=== PATIENT | male | born 1970 | race Caucasian/White ===

== ENCOUNTER 2016-09-13 10:32 | Emergency (ER) | payer OTHER, MEDICAID ==
[2016-09-13 10:57] VITALS: BP 101/80; PULSE 90; RESP 16; TEMP 98.1; O2SAT 95
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
[2016-09-13] MEDS ORDERED: ACETAMINOPHEN 325 MG TAB PO ONE (11:35)
== END 2016-09-13 11:55 | disposition home or self-care (01) ==
DX: J06.9 Acute upper respiratory infection, unspecified (principal); Z87.891 Personal history of nicotine dependence

== ENCOUNTER 2018-05-01 05:40 | Emergency (ER) | payer OTHER, MEDICAID ==
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
[2018-05-01] MEDS ORDERED: KETOROLAC 30 MG/1 ML SDV IM ONE (07:09)
[2018-05-01] MEDS ORDERED: CYCLOBENZAPRINE 10 MG TAB PO ONE (07:10)
[2018-05-01 07:44] VITALS: BP 127/87
== END 2018-05-01 07:46 | disposition home or self-care (01) ==
LOC: EDUNIT#
DX: M54.17 Radiculopathy, lumbosacral region (principal); G89.29 Other chronic pain; Z87.828 Personal history of other (healed) physical injury and trauma
CPT/HCPCS: 96372; 99284; J1885

== ENCOUNTER 2018-07-27 09:11 | Observation (INO) | payer OTHER, MEDICAID ==
[2018-07-27] MEDS ORDERED: IOPAMIDOL (ISOVUE 370) 100 ML BTL IV ONE ×2 (09:16→10:56)
--- NOTE | 2018-07-27 09:19 | EDPHY ---
H & P Time Seen by Provider: 07/27/18 09:11 Constitutional: Initial Vital Signs Heart Rate 96 07/27/18 09:25 Respiratory Rate 18 07/27/18 09:25 Blood Pressure 142/96 H 07/27/18 09:25 O2 Sat (%) 91 L 07/27/18 09:25 O2 Delivery Mode Room Air Allergies/Adverse Reactions: No Known Allergies Allergy (Verified 07/27/18 09:42) Home Medications: Medication Instructions Recorded Amitriptyline HCl [Elavil 50 mg 100 mg PO TID 07/27/18 (*)] Cyclobenzaprine [Flexeril 10 MG 5 - 10 mg PO TID PRN 07/27/18 (*)] Pregabalin [Lyrica 150mg (*)] 150 mg PO TID 07/27/18 Medical Decision Making - Diagnostics Imaging Results: Imaging Impressions Head CT 07/27/18 09:14 Impression: 1. Normal CT brain without contrast. 2. No evidence of skull fracture. 3. Consider MRI of the brain, if there is continued clinical concern. Findings and recommendations discussed with Emergency Department physician, Kirk Perez MD, at 0927 hours, 07/27/2018. Final report concurs with initial preliminary interpretation. Head CTA 07/27/18 09:14 Impression: 1. No carotid or vertebral dissection, flow-limiting stenosis or occlusion. 2. No carotid atherosclerotic disease. 3. Patent vertebral basilar system. Measurement of carotid stenosis is based on the residual internal carotid diameter with [place] Symptomatic Carotid Endarterectomy Trial (NASCET) based stenosis levels. CT Angiogram of the Brain Clinical Indications: Stroke alert, difficulty walking, altered mental status. Technique: CT angiogram of the brain and neck was performed with the uneventful intravenous administration of 85 mL Isovue-370 contrast. Multiplanar reconstructions including 3D reconstructions performed and evaluated on [employer] workstation in order to better evaluate the [place] vessels. Images were manipulated by the radiologist at the computer workstation. Dose reduction techniques were utilized. Findings: Major vessels of the [place] are adequately displayed, demonstrating no evidence of aneurysm, vascular malformation, flow-limiting stenosis, or occlusion. Bilateral cavernous internal carotid arteries and vertebrobasilar system demonstrates no evidence of flow-limiting stenosis, aneurysm, occlusion, or dissection. Superior sagittal sinus, transverse sinuses , and major veins demonstrate no evidence of intraluminal thrombi. Impression: Negative CT angiogram of the brain. Findings and recommendations discussed with Emergency Department physician, Dr. Kirk Perez at 0949 hours on July 27, 2018. Final report concurs with initial preliminary interpretation. Neck CTA 07/27/18 09:15 Impression: 1. No carotid or vertebral dissection, flow-limiting stenosis or occlusion. 2. No carotid atherosclerotic disease. 3. Patent vertebral basilar system. Measurement of carotid stenosis is based on the residual internal carotid diameter with [place] Symptomatic Carotid Endarterectomy Trial (NASCET) based stenosis levels. CT Angiogram of the Brain Clinical Indications: Stroke alert, difficulty walking, altered mental status. Technique: CT angiogram of the brain and neck was performed with the uneventful intravenous administration of 85 mL Isovue-370 contrast. Multiplanar reconstructions including 3D reconstructions performed and evaluated on [employer] workstation in order to better evaluate the [place] vessels. Images were manipulated by the radiologist at the computer workstation. Dose reduction techniques were utilized. Findings: Major vessels of the [place] are adequately displayed, demonstrating no evidence of aneurysm, vascular malformation, flow-limiting stenosis, or occlusion. Bilateral cavernous internal carotid arteries and vertebrobasilar system demonstrates no evidence of flow-limiting stenosis, aneurysm, occlusion, or dissection. Superior sagittal sinus, transverse sinuses , and major veins demonstrate no evidence of intraluminal thrombi. Impression: Negative CT angiogram of the brain. Findings and recommendations discussed with Emergency Department physician, Dr. Kirk Perez at 0949 hours on July 27, 2018. Final report concurs with initial preliminary interpretation. Abdomen CT 07/27/18 10:09 Impression: 1. Markedly distended urinary bladder and mild bilateral pelvocaliectasis. No pelvic mass. 2. Constipation. 3. No intraabdominal mass, lymphadenopathy, or localized inflammatory process. 4. Bibasilar linear atelectasis. Findings discussed with Emergency Department physician, Kirk Perez MD, on at 11:00 a.m. Imaging: Discussed imaging studies w/ industrial maintenance instructor Radiologist ED Course/Re-evaluation: CHIEF COMPLAINT: Stroke alert HISTORY OF PRESENT ILLNESS: 9:11 met EMS at bedside. This patient is a 48 year old male. one hour 15 minutes ago. 8:00 am. no known anticoagulants. fall in the bathroom. complaint of slurred speech. Per fire dept pt woke feeling well, was able to get up and walk around as usual, took his medications, then went to use the restroom and fell suddenly. Called EMS himself. Takes cyclobenzaprine, amitriptyline (180 pills filled 07/11/18, one remaining), Lyrica. 148/99. 104. 12-lead sinus tachy. BGL 139. REVIEW OF SYSTEMS: A comprehensive 10 system review of systems is otherwise negative aside from elements mentioned in the history of present illness and medical decision making. PHYSICAL EXAM: HR, BP, O2 Sat, RR. Temp noted General Appearance: Alert, well hydrated, appropriate, and non-toxic appearing. Head: Atraumatic without scalp tenderness or obvious injury Eyes: Pupils equal, round, reactive to light and accommodation, EOMI, no trauma , no injection. Ears: Clear bilaterally, no perforation, normal landmarks Nose: Atraumatic, no rhinorrhea, clear. Throat: There is no erythema or exudates, no lesions, normal tonsils, mucus membranes moist. Neck: Supple, 2+ carotid upstroke, nontender, no lymphadenopathy. Respiratory: No retractions, no distress, no wheezes, and no accessory muscle use. Lungs are clear to auscultation bilaterally. Cardiovascular: Regular rate and rhythm, no murmurs, rubs, or gallops. Bilateral carotid, radial, dorsalis pedis, and posterior tibial pulses intact. Good capillary refill all extremities. Gastrointestinal: Abdomen is soft, nontender, non-distended, no masses, no rebound, no guarding, no peritoneal signs. Musculoskeletal: Normal active ROM of all extremities, atraumatic. Neurological: Alert, appropriate, and interactive. The patient has normal DTRs and non-focal cranial nerves, motor, sensory, and cerebellar exam. Skin: No rashes, good turgor, no nodules on palpation. Past medical history: Past surgical history: Family history: Social history: DIAGNOSTICS/PROCEDURES/CRITICAL CARE TIME: DIFFERENTIAL DIAGNOSIS: MEDICAL DECISION MAKIN:11 Met EMS on arrival. 48 year old male arrives via EMS on a pre-hospital stroke alert for evaluation of speech and mobility deficits onset one hour and 15 minutes prior to arrival, around 8:00am. On arrival, he is noted to have slurred speech and bilateral weakness in his extremities. He will proceed immediately to imaging for CT head, CTA head/neck. Plan to consult with [facility]. 09:[address] Jean, radiolgist. CT head negative for acute processes. 09:[address] Albert, neurologist at [facility]. I was present for and participated in a bedside evaluation of the patient and consultation via telemedicine. Patient continues to exhibit speech and mobility deficits. He is currently an unreliable historian and it is difficult to establish a known time of onset of symptoms. Patient is therefore not a candidate for tPA administration at this time. Plan to admit the patient to the hospitalist service with consultation with local neurologist for further evaluation and management. It is unclear whether the cause of the patient's deficits are neurologic or metabolic in origin at this time. Additionally, the patient complains of new onset abdominal pain and swelling. The abdomen is diffusely tender on exam. Plan for additional laboratory studies including liver function panel, lipase. 9:[address] Jean, radiologist. 10:09 Spoke with hospitalist service. Dr. Pereyra accepts admission for []. 10:[address] Davis, neurologist. He will consult during the patient's admission. 10:[address] Han, radiologist. CT abdomen/pelvis shows distended bladder. No other acute processes. 11:19 Dr. Davis, neurologist, at bedside. - Data Points Laboratory Results: Laboratory Results 07/27/18 09:15 07/27/18 09:15 07/27/18 07/27/18 07/27/18 09:44 09:19 09:15 WBC RBC Hgb POC Hgb 16.7 gm/dL gm/dL (13.7-17.5) Hct POC Hct 49 % % (40-51) MCV MCH MCHC RDW Plt Count MPV Neut % (Auto) Lymph % (Auto) [place] % (Auto) Eos % (Auto) Baso % (Auto) Nucleat RBC Rel Count Absolute Neuts (auto) Absolute Lymphs (auto) Absolute Monos (auto) Absolute Eos (auto) Absolute Basos (auto) Absolute Nucleated RBC Immature Gran % Immature Gran # PT INR APTT POC Sodium 143 mEq/L mEq/L (135-145) Sodium POC Potassium 3.7 mEq/L mEq/L (3.3-5.0) Potassium POC Chloride 105 mEq/L mEq/L (97-110) Chloride Carbon Dioxide Anion Gap POC BUN 5 mg/dL L mg/dL (7-23) BUN Creatinine POC Creatinine 0.9 mg/dL mg/dL (0.7-1.3) Estimated GFR Glucose POC Glucose 90 mg/dL mg/dL (70-100) Calcium Total Bilirubin 0.3 mg/dL mg/dL (0.1-1.4) Conjugated Bilirubin 0.3 mg/dL mg/dL (0.0-0.5) Unconjugated Bilirubin 0.0 mg/dL mg/dL (0.0-1.1) AST 31 IU/L IU/L (17-59) ALT 58 IU/L IU/L (21-72) Alkaline Phosphatase 141 IU/L H IU/L (38-126) POC Troponin I 0.02 ng/mL ng/mL (0.00-0.08) Total Protein 7.7 g/dL g/dL (6.3-8.2) Albumin 4.6 g/dL g/dL (3.5-5.0) Lipase 64 IU/L IU/L (23-300) 07/27/18 07/27/18 07/27/18 09:15 09:15 09:15 WBC 9.76 10^3/uL H 10^3/uL (3.80-9.50) RBC 5.05 10^6/uL 10^6/uL (4.40-6.38) Hgb 16.5 g/dL g/dL (13.7-17.5) POC Hgb Hct 47.1 % % (40.0-51.0) POC Hct MCV 93.3 fL fL (81.5-99.8) MCH 32.7 pg pg (27.9-34.1) MCHC 35.0 g/dL g/dL (32.4-36.7) RDW 13.3 % % (11.5-15.2) Plt Count 199 10^3/uL 10^3/uL (150-400) MPV 9.6 fL fL (8.7-11.7) Neut % (Auto) 63.8 % % (39.3-74.2) Lymph % (Auto) 26.1 % % (15.0-45.0) [place] % (Auto) 6.4 % % (4.5-13.0) Eos % (Auto) 2.5 % % (0.6-7.6) Baso % (Auto) 0.8 % % (0.3-1.7) Nucleat RBC Rel Count 0.0 % % (0.0-0.2) Absolute Neuts (auto) 6.23 10^3/uL 10^3/uL (1.70-6.50) Absolute Lymphs (auto) 2.55 10^3/uL 10^3/uL (1.00-3.00) Absolute Monos (auto) 0.62 10^3/uL 10^3/uL (0.30-0.80) Absolute Eos (auto) 0.24 10^3/uL 10^3/uL (0.03-0.40) Absolute Basos (auto) 0.08 10^3/uL 10^3/uL (0.02-0.10) Absolute Nucleated RBC 0.00 10^3/uL 10^3/uL (0-0.01) Immature Gran % 0.4 % % (0.0-1.1) Immature Gran # 0.04 10^3/uL 10^3/uL (0.00-0.10) PT 12.2 SEC SEC (12.0-15.0) INR 0.88 (0.83-1.16) APTT 31.4 SEC SEC (23.0-38.0) POC Sodium Sodium 141 mEq/L mEq/L (135-145) POC Potassium Potassium 4.0 mEq/L mEq/L (3.5-5.2) POC Chloride Chloride 108 mEq/L mEq/L (97-110) Carbon Dioxide 24 mEq/l mEq/l (22-31) Anion Gap 9 mEq/L mEq/L (6-14) POC BUN BUN 8 mg/dL mg/dL (7-23) Creatinine 0.9 mg/dL mg/dL (0.7-1.3) POC Creatinine Estimated GFR > 60 Glucose 88 mg/dL mg/dL (70-100) POC Glucose Calcium 9.3 mg/dL mg/dL (8.5-10.4) Total Bilirubin Conjugated Bilirubin Unconjugated Bilirubin AST ALT Alkaline Phosphatase POC Troponin I Total Protein Albumin Lipase Medications Given: Discontinued Medications Lidocaine (Uroject Lidocaine 2% Jelly) 20 ml UR ONCE ONE Stop: 07/27/18 11:05 Last Admin: 07/27/18 11:11 Dose: 20 ml Point of Care Test Results: Chemistry 07/27/18 07/27/18 09:44 09:19 POC Sodium 143 mEq/L mEq/L (135-145) POC Potassium 3.7 mEq/L mEq/L (3.3-5.0) POC Chloride 105 mEq/L mEq/L (97-110) POC BUN 5 mg/dL L mg/dL (7-23) POC Creatinine 0.9 mg/dL mg/dL (0.7-1.3) POC Glucose 90 mg/dL mg/dL (70-100) POC Troponin I 0.02 ng/mL ng/mL (0.00-0.08) ISTAT H&H 07/27/18 09:19 POC Hgb 16.7 gm/dL gm/dL (13.7-17.5) POC Hct 49 % % (40-51) Departure - Departure Disposition: [facility] Inpatient Acute Clinical Impression: Neurological deficit present CVA (cerebral vascular accident) Qualifiers: CVA mechanism: unspecified Qualified Code(s): I63.9 - Cerebral infarction, unspecified Condition: Serious Report Scribed for: Kirk Perez Report Scribed by: Kenna Shultz Date of Report: 07/27/18 Time of Report: 11:39
[2018-07-27 09:36] LABS: PLATELET COUNT 199 10^3/uL (150-400)
[2018-07-27 09:45] LABS: INR 0.88 (0.83-1.16); PROTIME(PATIENT) 12.2 SEC (12.0-15.0)
[2018-07-27] MEDS ORDERED: LIDOCAINE 2% JELLY 20 ML (UROJECT) UR ONE (11:04)
--- NOTE | 2018-07-27 11:49 | GCON ---
NEUROLOGY CONSULT DATE OF CONSULTATION: 07/27/2018 REFERRING PHYSICIAN: Kirk Perez MD CHIEF COMPLAINT: Myoclonus. HISTORY OF PRESENT ILLNESS: The patient is a pleasant 48-year-old gentleman with apparently chronic schizophrenia, according to the patient, and related cognitive and speech abnormalities that he states has been present for "many years." The patient came to the emergency department for abdominal pain and inability to urinate. In this evaluation, he had myoclonus on exam and had a stroke alert called with [facility]. He had a CTA of the head and neck , which showed no acute vascular abnormalities. Head CT showed normal brain. His abdominal and pelvic CAT scan shows a markedly distended urinary bladder. REVIEW OF SYSTEMS: A review of systems was done and only pertinent to the HPI. For past medical history, social history, family history, home medications, allergies, see Dr. Perez's ED report. PHYSICAL EXAMINATION: VITAL SIGNS : His blood pressure is 140s/90s. He is breathing 18 times per minute, and O2 sats 94% on room air. NEUROLOGIC: He is awake and alert. He has an abnormal speech pattern that is difficult to understand. He states his articulatory imprecision is chronic and related to schizophrenia. Finding is not clear. On motor exam, the patient has no clear- cut focal weakness. 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 Sensory exam is normal. Coordination: Accentuates his asterixis when checking finger- nose-finger. IMPRESSION AND PLAN: 1. Toxic/metabolic encephalopathy Overall, the pattern of his presentation would be consistent with a toxic and/ or metabolic encephalopathy. I do note his renal and hepatic function is normal now. He has significant urinary bladder distention. He is apparently on tricyclic antidepressants as an outpatient, which in higher doses, can have anticholinergic affects that cause this presentation. The patient will likely be admitted to the hospitalist medicine service. I recommend an MRI brain without contrast to exclude any mass lesion, tumor, or stroke. If this is negative, then I would recommend medical treatment for the urinary dysfunction and close monitoring of renal and hepatic labs, as they may elevate in this clinical scenario. If there are any questions or abnormalities on MRI brain, please call the neurology service for further recommendations. Otherwise, we will continue to follow as needed. Please do not hesitate to call if there are any changes in neurologic status with this patient. 30 total minutes floor time today in the emergency department, over 50% in direct counseling and coordination of care with the ED staff. /[id number]/MODL MTDD
[2018-07-27] MEDS ORDERED: ONDANSETRON 4 MG/2 ML VIAL IVP PRN (13:04)
[2018-07-27] MEDS ORDERED: ONDANSETRON DISINTEGRATING 4 MG TAB PO PRN (13:04)
--- NOTE | 2018-07-27 14:21 | CPEKG ---
Test Reason : OPEN Blood Pressure : / mmHG Vent. Rate : 088 BPM Atrial Rate : 088 BPM P-R Int : 211 ms QRS Dur : 096 ms QT Int : 359 ms P-R-T Axes : 053 240 035 degrees QTc Int : 435 ms Sinus rhythm Prolonged RI interval Left anterior fascicular block Confirmed by Kirk Perez ([id number]) on 07/27/2018 2:20:54 PM Referred By: Confirmed By:Kirk Perez
[2018-07-27] MEDS: PREGABALIN 150 MG CAP PO SCH ×2 (15:38→22:48)
--- NOTE | 2018-07-27 16:18 | PDGENHP ---
History and Physical - Chief Complaint fall, difficulty urinating - History of Present Illness 48 yo male with h/o chronic pain and paranoid schizophrenia presents to ED after he suffered a fall while trying to go to the bathroom this am. He notes that he has recently been taking extra doses of Amitryptiline for his chronic pain. He is also on Lyrica. He notes increased difficulty with urination. Upon arrival to the ED, there was concern about slurred speech and a stroke alert was called. CT and CTA head / neck were negative for vessel occlusion. He says his speech is abnormal at baseline. He denies fevers, chills or dysuria. He denies CP, SOB. No hoskins or vision changes. CT imaging of the abdomen in the ED revealed markedly distended bladded. A solomon was placed and he was admitted for further evaluation. History Information - Allergies/Home Medication List Allergies/Adverse Reactions: No Known Allergies Allergy (Verified 07/27/18 09:42) Home Medications: Amitriptyline HCl [Elavil 50 mg (*)] 100 mg PO TID 07/27/18 [Last Taken 04:00] Cyclobenzaprine [Flexeril 10 MG (*)] 5 - 10 mg PO TID PRN 07/27/18 [Last Taken 07/27/18 04:00] Pregabalin [Lyrica 150mg (*)] 150 mg PO TID 07/27/18 [Last Taken 07/27/18 04:00] I have personally reviewed and updated: family history, medical history, social history, surgical history - Past Medical History Additional medical history: chronic pain. neuropathy. paranoid schizophrenia. migraines - Surgical History Additional surgical history: shoulder surgery - Family History Positive for: non-pertinent - Social History Smoking Status: Former smoker Additional social history: Lives independently Review of Systems Review of Systems: ROS: 10pt was reviewed & negative except for what was stated in HPI & below Physical Exam Physical Exam: Temp Pulse Resp BP Pulse Ox 36.3 C 80 19 139/93 H 93 07/27/18 14:25 07/27/18 14:25 07/27/18 14:25 07/27/18 14:25 07/27/18 14:25 Constitutional: no apparent distress Eyes: PERRL Ears, Nose, Mouth, Throat: moist mucous membranes Cardiovascular: regular rate and rhythym, no murmur, rub, or gallop Respiratory: no respiratory distress, clear to auscultation Gastrointestinal: normoactive bowel sounds, soft, non-tender abdomen Skin: warm Musculoskeletal: full muscle strength Neurologic: AAOx3, other (dysarthria) Psychiatric: interacting appropriately Lab Data & Imaging Review 07/27/18 09:15 07/27/18 09:15 WBC 9.76 10^3/uL (3.80-9.50) H 07/27/18 09:15 RBC 5.05 10^6/uL (4.40-6.38) 07/27/18 09:15 Hgb 16.5 g/dL (13.7-17.5) 07/27/18 09:15 POC Hgb 16.7 gm/dL (13.7-17.5) 07/27/18 09:19 Hct 47.1 % (40.0-51.0) 07/27/18 09:15 POC Hct 49 % (40-51) 07/27/18 09:19 MCV 93.3 fL (81.5-99.8) 07/27/18 09:15 MCH 32.7 pg (27.9-34.1) 07/27/18 09:15 MCHC 35.0 g/dL (32.4-36.7) 07/27/18 09:15 RDW 13.3 % (11.5-15.2) 07/27/18 09:15 Plt Count 199 10^3/uL (150-400) 07/27/18 09:15 MPV 9.6 fL (8.7-11.7) 07/27/18 09:15 Neut % (Auto) 63.8 % (39.3-74.2) 07/27/18 09:15 Lymph % (Auto) 26.1 % (15.0-45.0) 07/27/18 09:15 [place] % (Auto) 6.4 % (4.5-13.0) 07/27/18 09:15 Eos % (Auto) 2.5 % (0.6-7.6) 07/27/18 09:15 Baso % (Auto) 0.8 % (0.3-1.7) 07/27/18 09:15 Nucleat RBC Rel Count 0.0 % (0.0-0.2) 07/27/18 09:15 Absolute Neuts (auto) 6.23 10^3/uL (1.70-6.50) 07/27/18 09:15 Absolute Lymphs (auto) 2.55 10^3/uL (1.00-3.00) 07/27/18 09:15 Absolute Monos (auto) 0.62 10^3/uL (0.30-0.80) 07/27/18 09:15 Absolute Eos (auto) 0.24 10^3/uL (0.03-0.40) 07/27/18 09:15 Absolute Basos (auto) 0.08 10^3/uL (0.02-0.10) 07/27/18 09:15 Absolute Nucleated RBC 0.00 10^3/uL (0-0.01) 07/27/18 09:15 Immature Gran % 0.4 % (0.0-1.1) 07/27/18 09:15 Immature Gran # 0.04 10^3/uL (0.00-0.10) 07/27/18 09:15 PT 12.2 SEC (12.0-15.0) 07/27/18 09:15 INR 0.88 (0.83-1.16) 07/27/18 09:15 APTT 31.4 SEC (23.0-38.0) 07/27/18 09:15 POC Sodium 143 mEq/L (135-145) 07/27/18 09:19 Sodium 141 mEq/L (135-145) 07/27/18 09:15 POC Potassium 3.7 mEq/L (3.3-5.0) 07/27/18 09:19 Potassium 4.0 mEq/L (3.5-5.2) 07/27/18 09:15 POC Chloride 105 mEq/L (97-110) 07/27/18 09:19 Chloride 108 mEq/L (97-110) 07/27/18 09:15 Carbon Dioxide 24 mEq/l (22-31) 07/27/18 09:15 Anion Gap 9 mEq/L (6-14) 07/27/18 09:15 POC BUN 5 mg/dL (7-23) L 07/27/18 09:19 BUN 8 mg/dL (7-23) 07/27/18 09:15 Creatinine 0.9 mg/dL (0.7-1.3) 07/27/18 09:15 POC Creatinine 0.9 mg/dL (0.7-1.3) 07/27/18 09:19 Estimated GFR > 60 07/27/18 09:15 Glucose 88 mg/dL (70-100) 07/27/18 09:15 POC Glucose 90 mg/dL (70-100) 07/27/18 09:19 Calcium 9.3 mg/dL (8.5-10.4) 07/27/18 09:15 Total Bilirubin 0.3 mg/dL (0.1-1.4) 07/27/18 09:15 Conjugated Bilirubin 0.3 mg/dL (0.0-0.5) 07/27/18 09:15 Unconjugated Bilirubin 0.0 mg/dL (0.0-1.1) 07/27/18 09:15 AST 31 IU/L (17-59) 07/27/18 09:15 ALT 58 IU/L (21-72) 07/27/18 09:15 Alkaline Phosphatase 141 IU/L (38-126) H 07/27/18 09:15 POC Troponin I 0.02 ng/mL (0.00-0.08) 07/27/18 09:44 Total Protein 7.7 g/dL (6.3-8.2) 07/27/18 09:15 Albumin 4.6 g/dL (3.5-5.0) 07/27/18 09:15 Lipase 64 IU/L (23-300) 07/27/18 09:15 Urine Color PALE YELLOW 07/27/18 11:02 Urine Appearance CLEAR 07/27/18 11:02 Urine pH 7.0 (5.0-7.5) 07/27/18 11:02 Ur Specific [place] 1.003 (1.002-1.030) 07/27/18 11:02 Urine Protein NEGATIVE (NEGATIVE) 07/27/18 11:02 Urine Ketones NEGATIVE (NEGATIVE) 07/27/18 11:02 Urine Blood NEGATIVE (NEGATIVE) 07/27/18 11:02 Urine Nitrate NEGATIVE (NEGATIVE) 07/27/18 11:02 Urine Bilirubin NEGATIVE (NEGATIVE) 07/27/18 11:02 Urine Urobilinogen NEGATIVE EU (0.2-1.0) 07/27/18 11:02 Ur Leukocyte Esterase NEGATIVE (NEGATIVE) 07/27/18 11:02 Urine RBC NONE SEEN /hpf (0-3) 07/27/18 11:02 Urine WBC 1-3 /hpf (0-3) 07/27/18 11:02 Ur Epithelial Cells NONE SEEN /lpf (NONE-1+) 07/27/18 11:02 Urine Glucose NEGATIVE (NEGATIVE) 07/27/18 11:02 Urine Opiates Screen NEGATIVE (NEGATIVE) 07/27/18 11:02 Urine Barbiturates NEGATIVE (NEGATIVE) 07/27/18 11:02 Ur Phencyclidine Scrn NEGATIVE (NEGATIVE) 07/27/18 11:02 Ur Amphetamine Screen NEGATIVE (NEGATIVE) 07/27/18 11:02 U Benzodiazepines Scrn NEGATIVE (NEGATIVE) 07/27/18 11:02 Urine Cocaine Screen NEGATIVE (NEGATIVE) 07/27/18 11:02 U Marijuana (THC) Screen NON-NEGATIVE (NEGATIVE) H 07/27/18 11:02 Assessment & Plan Assessment: Urinary retention - likely 2/2 high dose TCA with overuse of this medication. -solomon for bladder decompression, no e/o infection -hold amitryptiline Metabolic encephalopathy - likely 2/2 above, seems back to baseline after bladder decompression Dysarthia - sounds like this is near baseline and may be related to his schizophrenia. CT and CTA neg. -MRI today, no e/o CVA Schizophrenia - not on meds, mood currently stable Dispo - obs Full code
[2018-07-28] MEDS: ACETAMINOPHEN 325 MG TAB PO PRN ×2 (07:19→13:43)
[2018-07-28] MEDS: PREGABALIN 150 MG CAP PO SCH (07:19)
--- NOTE | 2018-07-28 09:07 | NEUROPROG ---
Assessment: 1. Toxic encephalopathy, resolved The patient is remarkably improved a in terms of his overall appearance in mental status. He now can tell me that he took at least "8" amitriptyline. This would explain the toxic encephalopathy with mental status changes, urinary retention and asterixis. The asterixis is trace this morning, markedly improved as well. I counseled him at great length regarding the dangers of tricyclic antidepressant overdose. He understood and appreciate the recommendations. MRI brain did not show any acute abnormalities. We discussed this as well. No further recommendations. We will sign off and follow up as needed. Subjective: Patient feels much better after urinating and clearing from the tricyclic medication. Objective: Vital Signs Temp Pulse Resp BP Pulse Ox 36.3 C 81 16 126/75 H 96 07/28/18 08:00 07/28/18 08:00 07/28/18 08:00 07/28/18 08:00 07/28/18 08:00 07/27/18 07/28/18 07/29/18 05:59 05:59 05:59 Intake Total 150 Output Total 4300 Balance -4150 PT 12.2 SEC (12.0-15.0) 07/27/18 09:15 INR 0.88 (0.83-1.16) 07/27/18 09:15 Awake and alert today He has an abnormal speech pattern, per patient, chronic Compared to the ED exam, he is much more lucid clear today. Asterixis is now trace, compared to yesterday where was [id number]. 35 total minutes floor time; over 50% counseling and coordination of care. Allergies/Adverse Reactions: No Known Allergies Allergy (Verified 07/27/18 09:42)
--- NOTE | 2018-07-28 10:44 | ASMTCMCOM ---
CM Note CM Note Notes: Pt admitted to hospital for overmedication. CM met with pt who has a hx of paranoid schizophrenia but presents lucid and appropriate. He lives alone in an apt, states he has no needs but may need assistance getting home. DC Plan: Independent Date Signed: 07/28/2018 10:43 AM Electronically Signed By:Katelin Mcnair RN
[2018-07-28 11:32] VITALS: BP 135/89
--- NOTE | 2018-07-28 16:08 | ASMTLACE ---
[facility] Length of stay for Answers: 2 days current admission Acuity / Level of Answers: Yes Care: Did the patient have an inpatient admission? Comorbidities - select Answers: Opioid dependence all that apply / Chronic pain # of Emergency department Answers: 1-2 visits in the last 6 months Social determinants Answers: Mental health diagnosis (anxiety, depression, pers onality disorders, etc.) Score: 13 Date Signed: 07/28/2018 04:06 PM Electronically Signed By:SUSANNE Hamm
--- NOTE | 2018-07-28 16:14 | ASMTCMCOM ---
CM Note CM Note Notes: Pt medically stable for d/c. Pt needs help with a ride home. Tried to call [facility], they report pt does not have the Medicaid which covers their service. Pt has no funds to get a cab so [facility] cab voucher used to get pt home. No other CM d/c needs identified. Date Signed: 07/28/2018 04:10 PM Electronically Signed By:SUSANNE Hamm
--- NOTE | 2018-07-29 03:23 | GDS ---
DISCHARGE DIAGNOSES: 1. Urinary retention. 2. Metabolic encephalopathy. 3. Dysarthria. 4. Schizophrenia. CONSULTATIONS: Neurology. STUDIES AND PROCEDURES: 1. CT of the head. 2. CT angio of the head. 3. CT angio of the neck. 4. Abdominal CT. 5. MRI of the brain. PHYSICAL EXAM: GENERAL: The patient is alert. VITAL SIGNS: Afebrile at 36.5, pulse 79, respirator y rate 16, blood pressure is 135/89, he is saturating 94% on room air. I have seen and evaluated the patient on the day of discharge. HOSPITAL COURSE: The patient is a 48-year-old male who presented to the emergency room with complain ts of inability to urinate. He was evaluated and diagnosed with: 1. Urinary retention. This is in the setting of increased ingestion of amitriptyline. His Trevizo ca theter has been removed. He is able to urinate independently. This has resolved. 2. Metabolic encephalopathy. This is multifactorial in the setting of increased ingestion of amitri ptyline as well as urinary retention. He has returned to his baseline mentation. He did receive a c onsultation and evaluation from Neurology. No further workup warranted. 3. Dysarthria is likely secondary to the patient's baseline schizophrenia. Again, further radiologi corazon studies have been performed with no abnormalities identified. 4. Schizophrenia. This is stable. DISPOSITION: Patient will be discharged independently. There are no pending studies. DISCHARGE MEDICATIONS: Please refer to EMR form. FOLLOW-UP: Followup will be with his primary care physician. /[id number]/MODL
== END 2018-07-28 15:53 | disposition home or self-care (01) ==
LOC: EDUNIT# → INTOOBSV 10:10 → F3N 14:09
PROVIDERS: ADMIT Hospitalist; ATTEND Hospitalist
PROC: 0T9B70Z Drainage of Bladder with Drainage Device, Via Natural or Artificial Opening (ICD-10-PCS; principal; 2018-07-27)
DX: T43.011A Poisoning by tricyclic antidepressants, accidental (unintentional), initial encounter (principal); G92 Toxic encephalopathy; R33.9 Retention of urine, unspecified; R47.1 Dysarthria and anarthria; F20.0 Paranoid schizophrenia; Z23 Encounter for immunization
CPT/HCPCS: 51702; 70450; 70496; 70498; 70551; 74177; 90686; 93005; 99285; G0008; G0378; Q9967; 80305; 82435-PO; 82565-PO; 82947-PO; 84132-PO; 84295-PO; 84484-ER; 84520-PO; 85014-ER